=== PATIENT | male | born 1970 | race Caucasian/White ===

== ENCOUNTER 2022-01-04 10:31 | Emergency (ER) | payer SELFPAY ==
[2022-01-04 10:40] VITALS: BP_SYST 150
[2022-01-04] MEDS ORDERED: ETOMIDATE 20 MG/ 10 ML VIAL (AMIDATE) ONE (11:00)
[2022-01-04] MEDS ORDERED: ROCURONIUM BROMIDE 10 MG/ML (ZEMURON) ONE ×2 (11:00)
[2022-01-04 11:17] LABS: HEMATOCRIT 51.5 % (36-54); MEAN CORPUSCULAR HEMOGLOBIN 28 pg (27-31); MEAN CORPUSCULAR HGB CONC 33 % (32-36); MEAN CORPUSCULAR VOLUME 83 fL (79.0-98.0); PLATELET COUNT (AUTO) 277 K/uL (130-430); RED BLOOD CELL COUNT(AUTO) 6.18 MIL/uL (4.2-6.2); RED CELL DISTRIBUTION WIDTH 15.7 % (9.0-15.0)
[2022-01-04 11:29] LABS: PROTHROMBIN TIME 10.9 SECS (9.5-12.5)
[2022-01-04 11:30] LABS: ANION GAP 17 (5-15); CHLORIDE 112 mmol/L (98-107); CREATININE 6.13 mg/dL (0.55-1.30); GLUCOSE 154 mg/dL (70-99); POTASSIUM 3.8 mmol/L (3.5-5.1); SODIUM SERUM 153 mmol/L (136-145)
[2022-01-04 11:42] LABS: ALANINE AMINOTRANSFERASE 23 U/L (12-78); ALBUMIN 3.3 g/dL (3.4-4.8); ASPARTATE AMINOTRANSFERASE 23 U/L (10-37)
[2022-01-04] MEDS ORDERED: MIDAZOLAM IN NACL,ISO-OSMOT/PF 100 ML IV PRN (12:00)
[2022-01-04 12:10] LABS: GFR AFRICAN AMERICAN 13 mL/min (>90)
[2022-01-04 12:12] LABS: UREA NITROGEN, BLOOD 157 mg/dL (8-21)
[2022-01-04 12:13] LABS: ACETAMINOPHEN < 1 ug/mL (1-30); ALCOHOL, BLOOD < 3 mg/dL (<10)
[2022-01-04] MEDS ORDERED: niCARdipine 50 MG in D5W 230 ML IV PRN ×2 (12:15→12:45)
[2022-01-04] MEDS: NALOXONE HCL 2 MG/2 ML SYR IVP ONE (12:29)
[2022-01-04] MEDS: levETIRAcetam 1,000 MG IV BAG 100 ML IV ONE (12:37)
[2022-01-04 12:40] LABS: BARBITURATE, URINE NEGATIVE (NEG <=200); BENZODIAZEPINE, URINE NEGATIVE (NEG <=150); CANNABINOID, URINE NEGATIVE (NEG <=50); COCAINE, URINE NEGATIVE (NEG <=150); METHAMPHETAMINES SCREEN,URINE NEGATIVE (NEG <=500); OPIATE, URINE NEGATIVE (NEG <=100); PHENCYCLIDINE SCREEN,URINE NEGATIVE (NEG <=25); UR TRICYCLIC ANTIDEPRESSANTS NEGATIVE (NEG <=300); URINE AMPHETAMINE NEGATIVE (NEG <=500); URINE METHADONE NEGATIVE (NEG <=200); URINE OXYCODONE SCREEN NEGATIVE (NEG <=100); URINE PROPOXYPHENE SCREEN NEGATIVE (NEG <=300)
[2022-01-04] MEDS ORDERED: LORazepam 2 MG/ML VIAL IVP ONE (12:45)
[2022-01-04] MEDS ORDERED: LORAZEPAM IV PRN (12:45)
[2022-01-04] MEDS ORDERED: NS IV PRN (12:45)
[2022-01-04] MEDS ORDERED: LORazepam 2 MG/ML VIAL ONE (12:50)
[2022-01-04] MEDS ORDERED: PIPERACILLIN/TAZOBACTAM 2.25 GM in NS 50 ML IV ONE (13:15)
[2022-01-04 14:47] VITALS: BP_SYST 158
== END 2022-01-04 14:47 | disposition short-term general hospital (02) ==
LOC: SED 10:31
DX: S01.512A Laceration without foreign body of oral cavity, initial encounter (principal); I61.9 Nontraumatic intracerebral hemorrhage, unspecified; G81.94 Hemiplegia, unspecified affecting left nondominant side; J96.00 Acute respiratory failure, unspecified whether with hypoxia or hypercapnia; N17.9 Acute kidney failure, unspecified; I21.4 Non-ST elevation (NSTEMI) myocardial infarction; R65.20 Severe sepsis without septic shock; J69.0 Pneumonitis due to inhalation of food and vomit; I10 Essential (primary) hypertension; E86.0 Dehydration; X58.XXXA Exposure to other specified factors, initial encounter; Y93.89 Activity, other specified; Y92.89 Other specified places as the place of occurrence of the external cause; Y99.8 Other external cause status
CPT/HCPCS: 99291; 70450; 96365; 96375; 80307; 80053; 83735; 85014; 85049; 85610; 85730; 87040; 84484; 85048; 36415; 93005; 71045; 72125; 76376; 94640; 94002; 36600; 82803; 99292; 83051; 83605; G0482; J3490; J1953; J2060; J2310; J7060; G0480; G0481